=== PATIENT | female | born 1990 | race African-American/Black ===

== ENCOUNTER 2020-09-28 21:03 | Emergency (ER) | payer BC, OTHER ==
[2020-09-28 21:14] VITALS: BP 114/72; PULSE 67; TEMP 98.6; BMI 33.8
[2020-09-28] MEDS ORDERED: LIDOCAINE PATCH REMOVAL MC SCH (22:00)
[2020-09-28 22:21] LABS: BASO % 0.6 % (0-2.0); EOS % 3.9 % (0-4.5); HEMATOCRIT 41.8 % (32.4-45.2); HEMOGLOBIN 13.9 GM/dL (10.7-15.3); LYMPH % 37.6 % (8-40); MCH 27.2 pg (25.7-33.7); MCHC 33.2 g/dl (32.0-36.0); MEAN CELL VOLUME 81.9 fl (80-96); MEAN PLT VOLUME 7.2 fl (7.5-11.1); MONO % 10.4 % (3.8-10.2); NEUT % 47.5 % (42.8-82.8); PLATELET COUNT 353 K/MM3 (134-434); RDW 14.6 % (11.6-15.6)
[2020-09-28 22:24] LABS: EPI CELLS 2 /uL (0-25.1); HYALINE CASTS 0 /uL (0-3.1); PH,URINE 5.5 (5.0-8.0); URINE APPEARANCE CLEAR; URINE BACTERIA 34 /uL (0-1359); URINE BILIRUBIN NEGATIVE (NEGATIVE); URINE COLOR YELLOW; URINE GLUCOSE (UA) TRACE (NEGATIVE); URINE KETONE NEGATIVE (NEGATIVE); URINE LEUK ESTERASE NEGATIVE (NEGATIVE); URINE NITRITE NEGATIVE (NEGATIVE); URINE PROTEIN NEGATIVE (NEGATIVE); URINE RBC 9 /uL (0-23.9); URINE UROBILINOGEN 0.2 mg/dL (0.2-1.0); URINE WBC 2 /uL (0-25.8)
[2020-09-28 22:25] LABS: HCG,QUALITATIVE URINE Negative
[2020-09-28] MEDS ORDERED: LIDOCAINE 5% TOPICAL PATCH TP ONE (22:40)
[2020-09-28] MEDS ORDERED: KETOROLAC TROMETHAMINE 30 MG/1 ML VIAL IVPUSH ONE (22:40)
[2020-09-28] MEDS ORDERED: LIDOCAINE 5% TOPICAL PATCH ONE (22:56)
[2020-09-28] MEDS ORDERED: KETOROLAC TROMETHAMINE 30 MG/1 ML VIAL ONE (22:56)
[2020-09-28 22:58] LABS: ALBUMIN 3.5 g/dl (3.4-5.0); BLOOD UREA NITROGEN 16.9 mg/dL (7-18)
[2020-09-28 23:02] LABS: BILIRUBIN,TOTAL 0.5 mg/dL (0.2-1)
[2020-09-28 23:03] LABS: TOT PROT 8.8 g/dl (6.4-8.2)
[2020-09-28] MEDS ORDERED: KETOROLAC TROMETHAMINE 30 MG/1 ML VIAL IM ONE (23:16)
== END 2020-09-29 01:07 | disposition home or self-care (01) ==
LOC: JER 21:03
PROC: 3E0233Z Introduction of Anti-inflammatory into Muscle, Percutaneous Approach (ICD-10-PCS; principal; 2020-09-28)
DX: R07.9 Chest pain, unspecified (principal)
CPT/HCPCS: 36415; 74176-TC; 80053; 81003; 84132; 84703; 85025; 99284-25

== ENCOUNTER 2022-11-11 15:16 | Emergency (ER) | payer BC, OTHER ==
[2022-11-11 15:28] VITALS: BP 114/71; PULSE 81; RESP 16; TEMP 98.7; BMI 31.8
[2022-11-11 17:33] LABS: BASO % 0.3 % (0-2.0); EOS % 0.3 % (0-4.5); HEMATOCRIT 38.8 % (32.4-45.2); HEMOGLOBIN 12.6 GM/dL (10.7-15.3); LYMPH % 15.5 % (8-40); MCH 24.6 pg (25.7-33.7); MCHC 32.6 g/dl (32.0-36.0); MEAN CELL VOLUME 75.5 fl (80-96); MEAN PLT VOLUME 7.1 fl (7.5-11.1); NEUT % 75.9 % (42.8-82.8); PLATELET COUNT 307 10^3/uL (134-434); RBC 5.14 M/mm3 (3.60-5.2); RDW 19.6 % (11.6-15.6); WHITE BLOOD COUNT 10.4 K/mm3 (4.0-10.0)
[2022-11-11] MEDS ORDERED: ACETAMINOPHEN 500 MG TABLET (FP) PO ONE (17:35)
[2022-11-11 17:51] LABS: POTASSIUM 3.8 mmol/L (3.5-5.1)
[2022-11-11 17:53] LABS: CALCIUM 9.2 mg/dL (8.5-10.1)
[2022-11-11 17:54] LABS: ALBUMIN 3.6 g/dl (3.4-5.0); BLOOD UREA NITROGEN 12.1 mg/dL (7-18)
[2022-11-11 17:57] LABS: CREATININE 0.8 mg/dL (0.55-1.3)
[2022-11-11 17:58] LABS: TOT PROT 8.2 g/dl (6.4-8.2)
[2022-11-11 17:59] LABS: BILIRUBIN,TOTAL 0.3 mg/dL (0.2-1)
== END 2022-11-11 19:32 | disposition home or self-care (01) ==
LOC: JER 15:16
DX: O20.9 Hemorrhage in early pregnancy, unspecified (principal); O26.891 Other specified pregnancy related conditions, first trimester; R10.30 Lower abdominal pain, unspecified; Z3A.00 Weeks of gestation of pregnancy not specified
CPT/HCPCS: 36415; 76817-TC; 80053; 84702; 85025; 86850; 86900; 86901; 87086; 99284-25

== ENCOUNTER 2022-11-13 12:26 | Emergency (ER) | payer BC, OTHER ==
[2022-11-13 12:37] VITALS: BP 122/60; PULSE 80; RESP 14; TEMP 98.4; BMI 31.8
[2022-11-13 14:41] LABS: BASO % 0.3 % (0-2.0); EOS % 1.5 % (0-4.5); HEMATOCRIT 35.2 % (32.4-45.2); HEMOGLOBIN 11.6 GM/dL (10.7-15.3); LYMPH % 42.3 % (8-40); MCH 24.8 pg (25.7-33.7); MCHC 32.9 g/dl (32.0-36.0); MEAN CELL VOLUME 75.3 fl (80-96); MEAN PLT VOLUME 7.3 fl (7.5-11.1); MONO % 14.6 % (3.8-10.2); NEUT % 41.3 % (42.8-82.8); PLATELET COUNT 303 10^3/uL (134-434); RBC 4.67 M/mm3 (3.60-5.2); RDW 19.8 % (11.6-15.6); WHITE BLOOD COUNT 5.6 K/mm3 (4.0-10.0)
[2022-11-13 14:55] LABS: POTASSIUM 4.4 mmol/L (3.5-5.1)
[2022-11-13 14:58] LABS: ALBUMIN 3.3 g/dl (3.4-5.0); CALCIUM 8.6 mg/dL (8.5-10.1)
[2022-11-13 15:01] LABS: CREATININE 0.9 mg/dL (0.55-1.3)
[2022-11-13 15:03] LABS: BILIRUBIN,TOTAL 0.3 mg/dL (0.2-1); TOT PROT 7.7 g/dl (6.4-8.2)
[2022-11-13 16:19] LABS: EPI CELLS 4 /uL (0-25.1); HYALINE CASTS 0 /uL (0-3.1); URINE APPEARANCE CLEAR; URINE BACTERIA 15 /uL (0-1359); URINE BILIRUBIN NEGATIVE (NEGATIVE); URINE COLOR ORANGE; URINE GLUCOSE (UA) NEGATIVE (NEGATIVE); URINE KETONE NEGATIVE (NEGATIVE); URINE LEUK ESTERASE NEGATIVE (NEGATIVE); URINE NITRITE NEGATIVE (NEGATIVE); URINE PROTEIN NEGATIVE (NEGATIVE); URINE RBC 3747 /uL (0-23.9); URINE UROBILINOGEN 0.2 mg/dL (0.2-1.0); URINE WBC 2 /uL (0-25.8)
== END 2022-11-13 16:30 | disposition home or self-care (01) ==
LOC: JER 12:26
DX: N93.9 Abnormal uterine and vaginal bleeding, unspecified (principal)
CPT/HCPCS: 36415; 76817-TC; 80053; 81003; 84702; 85025; 86850; 86900; 86901; 87086; 99284-25

== ENCOUNTER 2023-09-14 19:19 | Emergency (ER) | payer BC, OTHER ==
[2023-09-14 19:31] VITALS: BP 115/68; PULSE 114; RESP 18; TEMP 98.9; BMI 36.6
== END 2023-09-14 20:10 | disposition home or self-care (01) ==
LOC: JERFT 19:19
DX: O99.512 Diseases of the respiratory system complicating pregnancy, second trimester (principal); J31.0 Chronic rhinitis; O26.812 Pregnancy related exhaustion and fatigue, second trimester; J02.9 Acute pharyngitis, unspecified; Z3A.15 15 weeks gestation of pregnancy; Z20.822 Contact with and (suspected) exposure to COVID-19
CPT/HCPCS: 0241U-QW; 99283-25